=== PATIENT | male | born 1960 | race Two or more races ===

== ENCOUNTER 2017-05-27 21:54 | Emergency (ER) | payer SELFPAY ==
[~2017-05-27] VITALS: Ht 162.6 cm; Wt 58.0 kg
[2017-05-27 22:26] VITALS: BP 139/85
== END 2017-05-28 00:15 | disposition left against medical advice (07) ==
LOC: ER 21:54
DX: L02.91 Cutaneous abscess, unspecified (principal); Z53.21 Procedure and treatment not carried out due to patient leaving prior to being seen by health care provider